=== PATIENT | male | born 1935 | race African-American/Black ===

== ENCOUNTER → 2016-06-19 | Outpatient (CLI) | payer OTHER ==
[~2016-06-19] VITALS: Ht 180.3 cm; Wt 71.5 kg
[~2016-06-19] MED LIST: AMLODIPINE BESY10 MG PO; ASPIR 8181 MG PO; CELEXA 10 MG TA10 MG PO; CELEXA20 MG PO; LUMIGAN2.5 M1 OP; OMEPRAZOLE 20 M20 M1 PO; SIMVASTATIN20 MG PO; SIMVASTATIN40 MG PO; SYMBICORT160 MCG/4. INH; SYSTANE 0.3-0.1 EACH OP; TIMOLOL MA0.25 %/5 M OP; TRAMADOL 50 MG50 MG PO; TRAVATAN Z2.5 ML OPHTHALMIC; TRUSOPT OCUMETE10 M1 OP
--- NOTE | ~2016-06-19 | HPC ---
[facility] [address] [place] [place] [place] [address] PAIN MANAGEMENT CONSULTATION Name: TIFF HERBERT Room #: REG SKYLAR M.R.#: [id number] Admission: 06/19/16 Attend Phys: Taj Rod MD Discharge: Date of : 35 Report #: [id number] THIS REPORT FOR: //name// CC: Mick Lenz MD [facility] physician/PCP GÉNESIS Rod DATE OF SERVICE: 06/19/2016 Followup visit due to malfunctioning of spinal cord stimulator. End of life of battery. The patient presents to pain clinic today reporting that his spinal cord stimulator battery is no longer working. I placed the device in January 2008. Old records at this time are unavailable. I reviewed information available and believe that this was a 2-lead percutaneous system, not a . He was seen only 2 times following placement of his stimulator for evaluation in the clinic and each time reported that he had been doing extremely well. In 2012, a small adjustment was required, but he has otherwise reported improvement in all radicular symptoms until the battery finally gave out. He would like to have his battery replaced and we discussed with Dr. Génesis Manzo at [facility] to provide the service for him since I am no longer in the operating room. CURRENT MEDICATIONS: MiraLax, timolol, travoprost, Symbicort, aspirin, Ultram 50 mg q. 6h. p.r.n., simvastatin, Celexa 20 mg daily, omeprazole 20 mg daily, amlodipine 10 mg. ALLERGIES: None. PAST MEDICAL HISTORY: Significant for prostate cancer with prostatectomy over 10 years ago. He has had previous back surgery followed by post-laminectomy syndrome with radiculopathy, which was dramatically improved following placement of a spinal cord stimulator system in 2007. Suffered from a gastric ulcer in the past requiring operative treatment. He has had a hernia repair. One year ago, he developed chest pain, was found to have coronary artery disease and a single coronary stent was placed at [facility]. REVIEW OF SYSTEMS: He walks with a walker, has a bowel movement daily. Complains of nocturia. Denies chest pain or shortness of breath. SOCIAL HISTORY: Denies use of tobacco or alcohol. He is . His is supportive and has been at all appointments in the past. They live independently. PHYSICAL EXAMINATION: [facility] [address] [place] [place] [address] PAIN MANAGEMENT CONSULTATION Name: TIFF HERBERT Room #: REG SKYLAR CerdaChelyPavelChely#: [id number] Admission: 06/19/16 Attend Phys: Taj Rod MD Discharge: Date of : 35 Report #: [id number] GENERAL: He is a pleasant 80-year-old gentleman. VITAL SIGNS: His blood pressure 157/88, heart rate 84, respirations 16, O2 sat 100%. His BMI is 22.0. HEENT: Normal. NECK: Supple. CHEST: Clear to auscultation with no inspiratory or expiratory wheezing. CARDIAC: Rhythm was regular and slow with no audible murmur. ABDOMEN: Soft, no organomegaly. EXTREMITIES: All free of edema. Peripheral pulses are palpable throughout. Spinal cord stimulator battery is easily palpated in the iliac crest region on the left and nontender. IMPRESSION: 1. Post-laminectomy syndrome with radiculopathy. This has been dramatically improved with spinal cord stimulation first placed in 2007. 2. Coronary artery disease status post single coronary stent placement. 3. History of prostatectomy for cancer, distant past. 4. Gastric ulcer. PLAN: He was given information to contact [facility] and schedule an appointment for evaluation by Dr. Manzo. I believe that this battery change can be accomplished as an outpatient, but we will leave details to Dr. Manzo and his team. No medications were provided on this visit. <ELECTRONICALLY SIGNED> By: Taj Rod MD 07/01/16 [id number] Taj Rod MD /nt
[2016-06-19 15:59] VITALS: BP 157/88
== END | disposition home or self-care (01) ==
LOC: PAIN 07:11
DX: M96.1 Postlaminectomy syndrome, not elsewhere classified (principal); K25.9 Gastric ulcer, unspecified as acute or chronic, without hemorrhage or perforation; I25.10 Atherosclerotic heart disease of native coronary artery without angina pectoris; Z85.46 Personal history of malignant neoplasm of prostate